=== PATIENT | female | born 1965 | race Hispanic/Latino ===

== ENCOUNTER → 2018-06-29 | Day surgery (SDC) | payer BC ==
[~2018-06-29] MED LIST: ASPIR 8181 MG PO; ATORVASTATIN CA20 MG PO; DICYCLOMINE HCL10 MG PO; FENOFIBRATE145 MG PO; HYDROXYZINE HCL25 MG PO; LISINOPRIL-HCT1 EAC2 PO; MELOXICAM7.5 MG PO; MIDAZOLAM HCL 2 MG/2 ML VIAL ONE; PANTOPRAZOLE SO40 MG PO; PROPOFOL IV EMULSION 10 MG/ML 50 ML VIAL ONE
--- OUTSIDE RECORDS SUMMARY | 2018-06-29 10:47 | XMS REPORT | Summary of Care ---
Author Author [facility] Outpatient Imaging [place] Organization [facility] Outpatient [facility] [place] Address Unknown Phone Unavailable Encounter HQ Darrellr_bart(FIN) [id number] Date(s): 10/30/15 - 10/30/15 [facility] Outpatient Imaging [place] [address] [place] [phone] Discharge Disposition: Home or Self Care Attending Physician: Leonel Alvarez MD Vital Signs No data available for this section Problem List Condition Effective Dates Status Health Status Informant HTN - Resolved Hypertension(Confirm ed) Hyperlipidemia(Confi Resolved rmed) Obesity(Confirmed) Active (Confirmed) < 1990 Resolved (Confirmed) < 1989 Resolved (Confirmed) 02/07/91 - 11/14/91 Resolved (Confirmed) 04/03/85 - 01/08/86 Resolved (Confirmed) 03/14/87 - 12/19/87 Resolved (Confirmed) 11/03/82 - 08/10/83 Resolved Allergies, Adverse Reactions, Alerts Substance Reaction Severity Status NKDA Active Medications No data available for this section Results No data available for this section Immunizations Given and Recorded Vaccine Date Status Refusal Reason diphtheria/pertussis, acel/tetanus adult 10/13/15 Given Procedures Procedure Date Related Diagnosis Body Site Bilateral tubal ligation delivery Social History Social History Type Response Substance Abuse Use: None. Sexual Sexually active: Yes. Employment/School Status: Unemployed. Work/School description: House . Alcohol Current1 Smoking Status Never smoker; Type: Cigars; Exposure to Tobacco Smoke None; Cigarette Smoking Last 365 Days No; Reg Smoking Cessation Counseling No 1Rare drinker Assessment and Plan No data available for this section
--- OUTSIDE RECORDS SUMMARY | 2018-06-29 10:47 | XMS REPORT | Continuity of Care Document ---
Author Author Gena andino Organization Interface Address Unknown Phone Unavailable Problems Problem Status Onset Date Classification Date Reported Comments Source BDDC/ Z12.11 SCREENING FOR MALIGNANT BRAVO Active 11/22/2015 [facility] COLONOSCOPY SCREENING Active 10/17/2015 [facility] Z12.39 - ENCOUNTER FOR OTH SCREENING FO Active 10/16/2015 VINCE Andino R10.9 - UNSPECIFIED ABDOMINAL PAIN L92.0 Active 10/13/2015 VINCE Andino Resolved 03/10/1990 [facility]/21[facility] HTN - Hypertension Resolved Problem 12/21/2015 VINCE Andino,[facility] Hyperlipidemia [facility] Medications Medication Details Route Status Patient Instructions Ordering Provider Order Date Source GoLYTELY oral powder for reconstitution 240 mL, PO, Q10Min, # 1 ea, 0 Refill(s), Pharmacy: [id number] Active 11/22/2015 [facility] Allergies, Adverse Reactions, Alerts Substance Category Reaction Severity Reaction type Status Date Reported Comments Source Immunizations Immunization Date Given Site Status Last Updated Comments Source diphtheria/pertussis, acel/tetanus adult 10/13/2015 Left Deltoid completed [facility] Results Order Name Results Value Reference Range Date Interpretation Comments Source Retroperitoneal Complete US Retroperitoneal Complete US EXAM: US RETROPERITONEAL COMPLETE DATE: 10/31/2015 12:00 AM CDT INDICATION: renal mass, left ADDITIONAL INFORMATION: None. COMPARISON: None. TECHNIQUE: Multiplanar grayscale and color Doppler ultrasound of the kidneys, aorta, IVC and urinary bladder. FINDINGS: Right kidney: Hydronephrosis: None. Size: 11.6 x 4.6 x 5.1 cm. Echogenicity: Normal. Calculi: None. Cysts: None. Masses: None. Left kidney: Hydronephrosis: None. Size: 11.2 x 5.5 x 5.1 cm. Echogenicity: Normal. Calculi: None. Cysts: A 2 x 1.3 x 1.2 cm cyst in the mid left renal cortex with a peripheral coarse calcification is present. Masses: None. Abdominal aorta: Suprarenal aorta: 2.4 cm. Juxtarenal aorta: 1.8 cm. Infrarenal aorta: 1.4 cm. Inferior vena cava: Normal. Retroperitoneal/periaortic region: Normal. Bladder: Normal. IMPRESSION: 1. A 2 x 1.3 x 1.2 cm left renal cyst with peripheral coarse calcification. 2. No hydronephrosis. 11/03/2015 - - Read by: Layla Doherty MD Dictated Date/time: 11/03/15 11:42 Electronically Signed by: Layla Doherty MD 11/03/15 11:45 FINAL REPORT VINCE Andino Digital Mammo Screening Jhon MA Digital Mammo Screening Jhon MA - DIGITAL MAMMO SCREENING JHON MA BILATERAL DIGITAL SCREENING MAMMOGRAM WITH CAD: 10/30/2015 CLINICAL: Z12.31 Encounter For Screening Mammogram For Malignant Neoplasm Of Breast. Current study was evaluated with a Computer Aided Detection (CAD) system. Comparison is made to exams dated: 08/26/2014 mammogram, 09/20/2011 mammogram and 10/04/2009 mammogram. There are scattered fibroglandular densities in both breasts. No significant masses, calcifications, or other findings are seen in either breast. There has been no significant interval change. IMPRESSION: NEGATIVE There is no mammographic evidence of malignancy. A 1 year screening mammogram is recommended. Trsiten Shelby M.D. Additional Observers: Filiberto young/julio:11/01/2015 15:29:10 [employer] Healthcare: Esther HINOJOSA)(Dhiraj), [facility] Outpatient Imaging Department This exam was dictated and interpreted by [id number] for [facility]. letter sent: Normal [facility] Mammogram BI-RADS: 1 Negative 10/30/2015 - - Read by: Tristen Shelby MD PHD Dictated Date/time: 11/01/15 15:29 Electronically Signed by: Tristen Shelby MD PHD 11/01/15 15:29 FINAL REPORT VINCE Andino Vital Signs Vital Sign Value Date Comments Source Weight 83.182 11/22/2015 [facility] BMI Calculated 34.65 11/22/2015 [facility] Height 154.94 cm 11/22/2015 [facility] Heart Rate 72 11/22/2015 [facility] Systolic (mm Hg) 145 11/22/2015 [facility] Diastolic (mm Hg) 87 11/22/2015 [facility] Encounters Location Location Details Encounter Type Encounter Number Reason For Visit Attending Provider ADM Date DC Date Status Source Outpatient [id number] FINA KAILYN 10/24/2015 Active [facility] Outpatient [id number] NISH ALVAREZ 10/27/2015 Active [facility] Outpatient Imaging [place]patient [id number] Nish Alvarez 10/30/2015 10/31/2015 [facility] Outpatient Imaging [place] [facility] [id number] Nish Alvarez 11/03/2015 11/04/2015 [facility] [place] [facility] [id number] NISH ALVAREZ 11/10/2015 Active [facility] Outpatient [id number] Jesse Mcfarland 11/22/2015 11/23/2015 [facility] Bedded Outpatient [id number] Christiano Palacios 12/18/2015 12/18/2015 [facility] Outpatient [id number] NISH ALVAREZ 12/21/2015 Active [facility] Outpatient [id number] NISH ALVAREZ 12/22/2015 Active [facility] Procedures Procedure Code Date Perfomer Comments Source Bilateral tubal ligation [id number] [facility] [place] [facility] [id number] [facility] Bilateral tubal ligation [id number] [facility] delivery [id number] [facility]
--- OUTSIDE RECORDS SUMMARY | 2018-06-29 10:47 | XMS REPORT | Summary of Care ---
Author Author [facility] Outpatient Imaging [place] Organization [facility] Outpatient Imaging [place] Address Unknown Phone Unavailable Encounter HQ Manintr_bart(FIN) [id number] Date(s): 11/03/15 - 11/03/15 [facility] Outpatient Imaging [place] [address] [place] [phone] Discharge Disposition: Home or Self Care Attending [...]
--- OUTSIDE RECORDS SUMMARY | 2018-06-29 10:48 | XMS REPORT | Summary of Care ---
Author Author [facility] Organization [facility] Address Unknown Phone Unavailable Encounter ALYSON Tyson(RENNY) [id number] Date(s): 11/22/15 - 11/22/15 [facility] [address] [place] [address]- [facility] [phone] Discharge Disposition: Home or Self Care Attending Physician: Jesse Mcfarland MD Referring Physician: Jesse Mcfarland MD Vital Signs Most recent to 1 oldest [Reference Range]: Height 154.94 cm (11/22/15 10:28 AM) Blood Pressure 145/87 mmHg [90-140/60-90 mmHg] *HI* (11/22/15 10:28 AM) Peripheral Pulse 72 bpm Rate [60-100 bpm] (11/22/15 10:28 AM) Weight 83.182 kg (11/22/15 10:28 AM) Body Mass Index 34.65 m2 (11/22/15 10:28 AM) Problem List Condition Effective Dates Status Health Status Informant HTN - Resolved Hypertension(Confirm ed) Hyperlipidemia(Confi Resolved rmed) Obesity(Confirmed) Active (Confirmed) < 1990 Resolved (Confirmed) < 1989 Resolved (Confirmed) 02/07/91 - 11/14/91 Resolved (Confirmed) 04/03/85 - 01/08/86 Resolved (Confirmed) 03/14/87 - 12/19/87 Resolved (Confirmed) 11/03/82 - 08/10/83 Resolved Allergies, Adverse Reactions, Alerts Substance Reaction Severity Status NKDA Active Medications GoLYTELY oral powder for reconstitution 240 mL, PO, Q10Min, # 1 ea, 0 Refill(s), Pharmacy: [id number] Start Date: 11/22/15 Stop Date: 11/23/15 Status: Ordered Results No data available for this section [...]
--- OUTSIDE RECORDS SUMMARY | 2018-06-29 10:48 | XMS REPORT | Summary of Care ---
Author Author [facility] Organization [facility] Address Unknown Phone Unavailable Encounter HQ Marbella(FIN) [id number] Date(s): 12/18/15 - 12/18/15 [facility] [address] [place], [place] [address] Discharge Disposition: Home or Self Care Attending Physician: Christiano Palacios MD Referring Physician: Christiano Palacios MD Vital Signs No data available for [...]
--- OUTSIDE RECORDS SUMMARY | 2018-06-29 10:48 | XMS REPORT ---
[facility] Address Unknown Phone Unavailable Care Team Providers Care Pearl Diver Name Role Phone Unavailable Unavailable Payers Payer Name Policy Type Policy Number Effective Date Expiration Date Problems This patient has no known problems. Allergies, Adverse Reactions, Alerts Allergy Name Allergy Type Status Severity Reaction(s) Onset Date Inactive Date Treating Clinician Comments No Known Allergies DA Active U 2018-05-01 00:00:00 No Known Allergies DA Active U 2017-07-15 00:00:00 Medications This patient has no known medications. Results Test Description Test Time Test Comments Text Results Atomic Results Result Comments TROPONIN-I 2018-05-02 00:18:00 TROPONIN-I (test code=TROPI) <0.015 ng/mL 0-0.045 COMMENTS TO STEREOTYPER: COLLECT 3 HOURS AFTER PREVIOUS [id number] 21:05:00* Test Item Value Reference Range Comments TROPONIN-I (test code=TROPI) <0.015 ng/mL 0-0.045 COMMENTS TO STEREOTYPER: COLLECT 3 HOURS AFTER PREVIOUS SAMPLETROPONIN I [id number] 15:12:00* Test Item Value Reference Range Comments TROPONIN I RAPID (test code=TROPIRAP) 0.01 ng/mL <0.08 Please Note New Reference Range 0.00-0.079 ng/mL - Negative>or=0.08 ng/mL - Positive The use of serial sampling and testing protocol is arecommended practice.An elevated troponin level alone is often not sufficient fordiagnosis of myocardial infarction. Troponin results obtained by different assays may vary.Evaluation of the extent of myocardial damage based onincrease of troponin would be valid only if similarmethodology is used. URINALYSIS [id number] 12:08:00* Test Item Value Reference Range Comments UA COLOR (test code=COLU) LIGHT YELLOW YELLOW UA APPEARANCE (test code=APPU) CLEAR CLEAR UA GLUCOSE DIPSTICK (test code=DGLUU) NEGATIVE mg/dL NEGATIVE UA BILIRUBIN DIPSTICK (test code=BILU) NEGATIVE mg/dL NEGATIVE UA KETONE DIPSTICK (test code=KETU) Negative mg/dL NEGATIVE UA SPECIFIC GRAVITY (test code=SGU) 1.009 1.001-1.035 UA BLOOD DIPSTICK (test code=CITLALI) Negative NEGATIVE UA PH DIPSTICK (test code=MOHAN) 7.0 5.0-8.0 UA PROTEIN DIPSTICK (test code=PROU) Negative mg/dL NEGATIVE UA UROBILINIOGEN DIPSTICK (test code=URO) 1 mg/dL (1+) mg/dL 0.0-0.2 UA NITRITE DIPSTICK (test code=BETITO) NEGATIVE NEGATIVE UA LEUKOCYTE ESTERASE W REFLEX (test code=LEUUR) NEGATIVE NEGATIVE UA WBC (test code=WBCU) 0-5 #/HPF 0-5 UA RBC (test code=RBCU) 0-2 #/HPF 0-5 UA EPITHELIAL CELLS (test code=EPIU) FEW per HPF FEW Urine Source? Clean CatchURINALYSIS [id number] 11:54:00* Test Item Value Reference Range Comments UA COLOR (test code=COLU) LIGHT YELLOW YELLOW UA APPEARANCE (test code=APPU) CLEAR CLEAR UA GLUCOSE DIPSTICK (test code=DGLUU) NEGATIVE mg/dL NEGATIVE UA BILIRUBIN DIPSTICK (test code=BILU) NEGATIVE mg/dL NEGATIVE UA KETONE DIPSTICK (test code=KETU) Negative mg/dL NEGATIVE UA SPECIFIC GRAVITY (test code=SGU) 1.009 1.001-1.035 UA BLOOD DIPSTICK (test code=CITLALI) Negative NEGATIVE UA PH DIPSTICK (test code=MOHAN) 7.0 5.0-8.0 UA PROTEIN DIPSTICK (test code=PROU) Negative mg/dL NEGATIVE UA UROBILINIOGEN DIPSTICK (test code=URO) mg/dL 0.0-0.2 UA NITRITE DIPSTICK (test code=BETITO) NEGATIVE NEGATIVE UA LEUKOCYTE ESTERASE W REFLEX (test code=LEUUR) NEGATIVE NEGATIVE UA WBC (test code=WBCU) 0-5 #/HPF 0-5 UA RBC (test code=RBCU) 0-2 #/HPF 0-5 UA EPITHELIAL CELLS (test code=EPIU) FEW per HPF FEW Urine Source? Clean Catch- US ABDOMEN [id number] 11:46:00 Name: IRAJ CHAPIN [facility] : 1965 Age/S: 52 / F [address] Unit #: [id number] Loc: [place] [address] Phys: Sandrita Martinez DO Acct: [id number] Dis Date: Status: REG ER PHONE #: [phone] Exam Date: 05/01/2018 1132 FAX #: [phone] Reason: Abdominal Pain EXAMS: CPT CODE: [id number] US ABDOMEN LTD 60866 HISTORY: Abdominal pain. COMPARISON: CT scan from October 31, 2016. The liver is mildly hyperechogenic suggesting mild fibrofatty infiltration which limited evaluation for intrahepatic mass however no discrete lesions. The liver measuring 14.2 cm in length. No intra or extrahepatic biliary d uctal dilatation. CBD is normal at 4.9 mm. Main portal vein is patent. Hep atopedal flow with normal spectral waveform. Gallbladder is without gallstones. No pericholecystic fluid. No wall thickening. No ascit es. Right kidney is free from hydronephrosis and calyceal stones. Normal echogenicity and texture. Right kidney measuring 11.8 cm in length. 1 cm Bosniak 2 lesion in the right posterior interpolar region is u nchanged from October 2016. Visualized portions of the IVC, aorta and pancr eas are normal however imaged incompletely. IMPRESSION: No gallstones. Fibrofatty infiltrated liver. Stable 1 cm Bosni ak 2 lesion in the right interpolar region. Electronically S igned by Jonathan Burciaga on 05/01/2018 at 1146 Reporte d and signed by: Jose Burciaga M.D. CC: Sandrita Martinez DO Technologist: LÁZARO DENT ARAIDEES Trnscb Date/Time: 05/01/2018 (4183) [email or web address] Orig Print D/T: S: 05/01/2018 (7491) Probe: PAGE 1 Signed Report TROPONIN-I 2018-05-01 10:20:00* Test Item Value Reference Range Comments TROPONIN-I (test code=TROPI) <0.015 ng/mL 0-0.045 BASIC METABOLIC [id number] 10:18:00* Test Item Value Reference Range Comments SODIUM (test code=NA) 140 mmol/L 136-145 POTASSIUM (test code=K) 4.1 mmol/L 3.5-5.1 CHLORIDE (test code=CL) 101.0 mmol/L 98-107 CARBON DIOXIDE (test code=CO2) 34.0 mmol/L 21-32 ANION GAP (test code=GAP) 9.1 10-20 GLUCOSE (test code=GLU) 132 mg/dL 74-106 BLOOD UREA NITROGEN (test code=BUN) 13 mg/dL 7-18 GLOMERULAR FILTRATION RATE (test code=GFR) 58 mL/min >=60 Estimated GFR by using Modified MDRD formula.Chronic kidney disease is defined as either kidney damageor GFR <60 mL/min/1.73 m2 for >3 months. CREATININE (test code=CREAT) 1.00 mg/dL 0.55-1.02 Note change in reference range due to change in reagent. BUN/CREATININE RATIO (test code=BUN/CREA) 13.0 10-20 CALCIUM (test code=CA) 9.4 mg/dL 8.5-10.1 HEPATIC FUNCTION [id number] 10:18:00* Test Item Value Reference Range Comments TOTAL PROTEIN (test code=PROT) 8.0 gram/dL 6.4-8.2 ALBUMIN (test code=ALB) 4.0 g/dL 3.4-5.0 GLOBULIN (test code=GLOB) 4.0 gram/dL 2.7-4.2 ALBUMIN/GLOBULIN RATIO (test code=A/G) 1.0 0.75-1.50 BILIRUBIN TOTAL (test code=BILT) 1.20 mg/dL 0.0-1.0 BILIRUBIN DIRECT (test code=BILD) 0.28 mg/dL 0.0-0.20 SGOT/AST (test code=AST) 21 IUnit/L 15-37 SGPT/ALT (test code=ALT) 31 IUnit/L 12-78 ALKALINE PHOSPHATASE TOTAL (test code=ALKP) 101 IUnit/L 45-117 Note change in reference range due to change in reagent. [id number] 10:18:00* Test Item Value Reference Range Comments LIPASE (test code=LIP) 125 U/L 73.0-393.0 CBC W/O [id number] 10:18:00* Test Item Value Reference Range Comments WHITE BLOOD CELL (test code=WBC) 12.2 K/mm3 4.5-12.5 RED BLOOD CELL (test code=RBC) 4.34 mill/mm3 3.7-5.2 HEMOGLOBIN (test code=HGB) 12.2 gram/dL 11.5-15.5 HEMATOCRIT (test code=HCT) 37.5 % 36.0-46.0 MEAN CELL VOLUME (test code=MCV) 86.4 fL 80-98 MEAN CELL HGB (test code=MCH) 28.1 picogram 27.0-33.0 MEAN CELL HGB CONCETRATION (test code=MCHC) 32.5 gram/dL 33.0-36.0 RED CELL DISTRIBUTION WIDTH (test code=RDW) 13.6 % 11.6-16.2 PLATELET COUNT (test code=PLT) 145 K/mm3 150-450 MEAN PLATELET VOLUME (test code=MPV) 10.8 fL 6.7-11.0 - XR CHEST 1 [id number] 10:01:00 FAX: Sandrita Martinez DO [place]: [address]: REG Name: IRAJ GOTTI [facility] : [birth year] Age/S: 52/F [address] [facility] Unit #: [id number] Loc: [place] [id number] Phys: Sandrita Martinez DO Acct: [id number] Dis Date: Status: REG ER PHONE #: [phone] Exam Date: 05/01/2018 0952 FAX #: [phone] Reason: CHEST PAIN EXAMS: CPT CODE: [id number] XR CHEST 1 V 76252 HISTORY: Chest pain. COMPARISON: October 31, 2016. No acute infiltrates, effusion or co ngestion is noted. The cardiac and mediastinal silhouette are with in normal limits. IMPRESSION: No acute infil trates, effusion or congestion. at 1001 Reported and signed by: Kiana Burciaga M.D. CC: Sandrita Martinez DO Technologist: Ai Abbott RT(R); STUDENT TECHNOLOGIST Trnscrd Date/Time/By: 05/01/2018 (1001) : By: [email or web address] Orig Print D/T: S: 05/01/2018 (1006) PAGE 1 Signed Report CBC W/O [id number] 09:58:00 * Test Item Value Reference Range Comments WHITE BLOOD CELL (test code=WBC) K/mm3 4.5-12.5 RED BLOOD CELL (test code=RBC) mill/mm3 3.7-5.2 HEMOGLOBIN (test code=HGB) 12.2 gram/dL 11.5-15.5 HEMATOCRIT (test code=HCT) 37.5 % 36.0-46.0 MEAN CELL VOLUME (test code=MCV) fL 80-98 MEAN CELL HGB (test code=MCH) picogram 27.0-33.0 MEAN CELL HGB CONCETRATION (test code=MCHC) gram/dL 33.0-36.0 RED CELL DISTRIBUTION WIDTH (test code=RDW) % 11.6-16.2 PLATELET COUNT (test code=PLT) K/mm3 150-450 MEAN PLATELET VOLUME (test code=MPV) fL 6.7-11.0
[2018-06-29 14:15] VITALS: BP 114/66
--- NOTE | 2018-06-29 15:51 | Operative Report ---
DATE OF PROCEDURE: 06/29/2018 SURGEON: Oswald Schneider MD PROCEDURE: EGD with biopsies. INDICATIONS FOR EGD: Upper abdominal pain, heartburn. MEDICATIONS: The patient was done under MAC, please see anesthesiologist's note. PROCEDURE IN DETAIL: With the patient in left lateral decubitus position, a flexible fiberoptic Olympus gastroscope was introduced into the esophagus under direct visualization without any difficulty. There was some patchy erythema noted in distal esophagus. The scope was then advanced with ease into the stomach. Mucosa overlying the antrum and the body revealed some patchy erythema and low-grade to moderate edema and biopsies were obtained and sent to stain for H pylori. The pylorus was of normal contour and shape, it was intubated with ease and the scope was advanced all the way to the second portion of the duodenum. The scope was then withdrawn slowly and biopsies were obtained from the proximal second portion and duodenal bulb to rule out sprue. The scope was then withdrawn back into the stomach and retroflexed. Mucosa overlying the fundus and the cardia appeared to be within normal limits. The scope was then straightened out. The stomach was decompressed. The scope was subsequently withdrawn. The patient tolerated procedure well. IMPRESSION: 1. Distal esophagitis, mild. 2. Gastritis, biopsied. Biopsies sent to stain for H pylori. 3. Rule out sprue. PLAN: Follow up histology. Increase Protonix to 40 mg one p.o. a.c. b.i.d. Oswald Schneider MD [facility] /[id number] cc: Yamila Baez MD
== END | disposition home or self-care (01) ==
LOC: OR 10:45
PROVIDERS: ATTEND Internal Medicine Gastroenterology
DX: K29.50 Unspecified chronic gastritis without bleeding (principal); K20.9 Esophagitis, unspecified; K59.00 Constipation, unspecified; K21.9 Gastro-esophageal reflux disease without esophagitis; E78.5 Hyperlipidemia, unspecified; I10 Essential (primary) hypertension; E78.00 Pure hypercholesterolemia, unspecified; F41.9 Anxiety disorder, unspecified; Z01.810 Encounter for preprocedural cardiovascular examination; Z79.82 Long term (current) use of aspirin
CPT/HCPCS: 43239; 93005; J2250; J2704

== ENCOUNTER → 2018-08-27 | Outpatient (CLI) | payer BC ==
[~2018-08-27] MED LIST changes: -MIDAZOLAM HCL 2 MG/2 ML VIAL ONE; -PROPOFOL IV EMULSION 10 MG/ML 50 ML VIAL ONE
--- NOTE | 2018-08-27 16:37 | Diagnostic Imaging Report ---
Hepatobiliary Scan with Gallbladder Ejection Fraction Clinical information: Cholelithiasis; intermittent RUQ abdominal pain Report: Following intravenous administration of 6.5 millicuries of Tc-99m mebrofenin, dynamic images of the abdomen in the anterior projection were obtained through 35 minutes. Sincalide (CCK analog) 1.5 micrograms was administered intravenously over 30 minutes with additional imaging for determination of gallbladder ejection fraction. Perfusion to the liver is normal. Extraction of tracer from the blood pool by the liver parenchyma is normal. Tracer is seen promptly within the biliary tract. The gallbladder begins to fill by 13 minutes post-injection of tracer and fills adequately. Tracer is seen in the small bowel during the sincalide infusion. The gallbladder ejection fraction with administration of sincalide is 64% (normal greater than 40%). Impression: 1. Filling of the gallbladder excludes the diagnosis of acute cystic duct obstruction/acute cholecystitis. 2. Normal gallbladder ejection fraction of 64% does not support the clinical diagnosis of chronic cholecystitis/gallbladder dyskinesia. Signed by: Dr. Rosi Wayne M.D. on 08/27/2018 4:34 PM
== END ==
LOC: NM 11:14
PROVIDERS: ATTEND Internal Medicine Gastroenterology
DX: R10.10 Upper abdominal pain, unspecified (principal); R14.0 Abdominal distension (gaseous)
CPT/HCPCS: 78227; A9537